=== PATIENT | female | born 1970 | race Caucasian/White ===

== ENCOUNTER → 2021-07-13 01:06 | Outpatient (CLI) | payer SELFPAY | PROVIDERS: Visit Provider Family Medicine ==

== ENCOUNTER → 2021-09-08 01:22 | Outpatient (CLI) | payer MEDICARE, SELFPAY ==
--- NOTE | 2021-09-08 15:42 | DI.MAMMO_ITS ---
Exam(s) MAMMO SCREENING EXAM: MAMMO SCREENING CLINICAL HISTORY: SCREENING, Z12.39. TECHNIQUE: Bilateral full field digital CC and MLO mammographic images were obtained with 3D tomosyn thesis and utilizing computer aided detection (CAD). COMPARISON: Prior outside mammograms were reviewed, the most recent being December 2018. FINDINGS: There is a benign-appearing lymph node laterally in the breast, unchanged from prior studies. A mauricio gn-appearing microcalcification posteriorly in the right breast is again noted. Asymmetric density lateral of center in the right breast located approximately 8 cm from the nipple o n the CC view noted. Recommend spot compression view. No malignant-appearing microcalcification abdulkadir ups in this region nor elsewhere in either breast There are no new spiculated masses nor malignant appearing microcalcification groups. There is no significant architectural distortion nor skin thickening-retraction. IMPRESSION: Stable benign-appearing left breast findings Asymmetric right breast density. Spot compression view and ultrasound recommended. I note this fauzia ent's mother was diagnosed with breast cancer. BI-RADS Category 0 - Assessment Incomplete: Need additional imaging evaluation Breast Density - Category C - Heterogeneously dense Breast density Category C or D implies that the patient has dense breast tissue. Dense breast tissue can make it harder to find cancer on a mammogram. Dense breast tissue is also associated with an incr eased risk of breast cancer. This information about the result of the mammogram report was provided to the patient to raise their awareness. Use this report when you speak with the patient about their risks for breast cancer, which includes their family history. At that time, you may recommend additional screening tests (Ultrasoun d or MRI) as these tests may add significant information. A negative radiographic report should not delay biopsy if a dominant or clinically suspicious mass is present. Up to ten percent of cancers are not identified on mammography. A negative report may reinforce clinical impression. Adenosis and dense breasts may obscure an underlying neoplasm. False positive reports average 6 to 10%. Patient will receive a letter notifying them of these results.
== END ==
PROVIDERS: Visit Provider Family Medicine
DX: Z12.31 Encounter for screening mammogram for malignant neoplasm of breast (principal); R92.8 Other abnormal and inconclusive findings on diagnostic imaging of breast; Z80.3 Family history of malignant neoplasm of breast
CPT/HCPCS: 77063; 77067

== ENCOUNTER 2021-09-22 15:55 | Outpatient (REF) | payer MEDICARE, MEDICAID, SELFPAY ==
[2021-09-22 14:46] LABS: HCT 43.3 % (36.0-46.0); HGB 14.3 g/dL (11.2-15.7); MCH 29.9 pg (27.0-33.0); MCV 91 fL (80-95); MPV 10.3 fL (8.0-11.0); Platelet Count 343 10^3/uL (130-400); RBC 4.78 10^6/uL (3.93-5.22); RDW 12.6 % (11.7-14.6); RDW-SD 41.3 fL; WBC 6.08 10^3/uL (4.4-10.8)
[2021-09-22 15:07] LABS: ALT 26 U/L (14-59); AST 25 U/L (15-37); Albumin 3.7 g/dL (3.4-5.0); Alkaline Phosphatase 119 U/L (46-116); Anion Gap 3.2 mmol/L (3-11); BUN 10 mg/dL (7-18); Bilirubin, Total 0.3 mg/dL (0.2-1.0); CO2 30.8 mmol/L (21.0-32.0); CREATININE 0.8 mg/dL (0.55-1.02); Calcium 8.8 mg/dL (8.5-10.1); Chloride 103 mmol/L (98-107); Glucose 95 mg/dL (74-106); Potassium 3.8 mmol/L (3.5-5.1); Sodium 137 mmol/L (136-145); TSH (W/Ref FT4) 1.33 uIU/mL (0.36-3.74); Total Protein 7.4 g/dL (6.4-8.2)
[2021-09-22 15:49] LABS: Hemoglobin A1C 5.6 % (<5.7)
== END 2021-09-22 15:56 | disposition home or self-care (01) ==
LOC: NCHCN 15:55
PROVIDERS: Visit Provider Nurse Practitioner Family
DX: F32.9 Major depressive disorder, single episode, unspecified (principal); Z13.1 Encounter for screening for diabetes mellitus; Z83.3 Family history of diabetes mellitus; Z00.00 Encounter for general adult medical examination without abnormal findings
CPT/HCPCS: 80053; 85027; 83036; 84443

== ENCOUNTER → 2021-09-29 00:48 | Outpatient (CLI) | payer MEDICARE, MEDICAID, SELFPAY ==
--- NOTE | 2021-09-29 | DI.US_ITS ---
Exam(s) MG MAMMO SCREEN CALL BACK UNI US BREAST RT COMPLETE EXAM: MG MAMMO SCREEN CALL BACK UNI-RIGHT AND COMPLETE RIGHT BREAST ULTRASOUND CLINICAL HISTORY: F/U MAMMO, ASYMMETRIC RT DENSITY. TECHNIQUE: Unilateral spot mammographic images obtained with 3D tomosynthesisand utilizing computer aided detection (CAD). . Complete RIGHT breast Ultrasound was also performed, including all 4 quadrants, the retroareolar rose on, and the ipsilateral axilla. COMPARISON: Prior mammograms were reviewed. This additional imaging was performed due to findings described on the recent screening mammogram of 09/08/2021. FINDINGS: DIAGNOSTIC RIGHT BREAST MAMMOGRAM: Additional mammographic views performed todayrenders this area less concerning and similar appearance to prior mammograms. COMPLETE RIGHT BREAST ULTRASOUND: Ultrasound performed today reveals no solid or significant cystic lesions in all 4 quadrants. No fin dings in the area of concern described on the recent screening mammogram (which appears less concerni ng on additional mammographic spot 3D views performed today). Ultrasound of the right axilla is negative for significant adenopathy. IMPRESSION: No radiographic evidence of malignancy in the right breast. Also negative complete right breast ultrasound. Appropriate follow-up is to keep this patient on her yearly mammogram schedule, with earlier imaging if a self detected breast change is noted. The patient was informed of these findings and recommendations prior to leaving the department today. BI-RADS Category 2 - Benign Findings Breast Density - Category C - Heterogeneously dense Breast density Category C or D implies that the patient has dense breast tissue. Dense breast tissue can make it harder to find cancer on a mammogram. Dense breast tissue is also associated with an incr eased risk of breast cancer. This information about the result of the mammogram report was provided to the patient to raise their awareness. Use this report when you speak with the patient about their risks for breast cancer, which includes their family history. At that time, you may recommend additional screening tests (Ultrasoun d or MRI) as these tests may add significant information. A negative radiographic report should not delay biopsy if a dominant or clinically suspicious mass is present. Up to ten percent of cancers are not identified on mammography. A negative report may reinforce clinical impression. Adenosis and dense breasts may obscure an underlying neoplasm. False positive reports average 6 to 10%. Patient will receive a letter notifying them of these results.
== END ==
PROVIDERS: Visit Provider Family Medicine
DX: Z12.31 Encounter for screening mammogram for malignant neoplasm of breast; N64.89 Other specified disorders of breast
CPT/HCPCS: 76642; 77063; 77067

== ENCOUNTER 2023-02-14 17:47 | Outpatient (REF) | payer MEDICARE, SELFPAY ==
[2023-02-14 19:12] LABS: Abs Immature Grans 0.02 10^3/uL (0.0-0.06); Absolute Basophil Count 0.02 10^3/uL (0.0-0.2); Absolute Eosinophil Count 0.11 10^3/uL (0.0-0.7); Absolute Lymphocyte Count 1.83 10^3/uL (1.2-3.4); Absolute Monocyte Count 0.41 10^3/uL (0.1-0.8); Absolute Neutrophil Count 4.13 10^3/uL (1.2-6.7); Basophils % 0.3; Eosinophils % 1.7; HCT 45.3 % (36.0-46.0); HGB 15.2 g/dL (11.2-15.7); Immature Grans % 0.3; Lymphocytes % 28.1; MCH 29.9 pg (27.0-33.0); MCHC 33.6 % (32.0-36.0); MCV 89 fL (80-95); MPV 9.6 fL (8.0-11.0); Monocytes % 6.3; Neutrophils % 63.3; Platelet Count 357 10^3/uL (130-400); RBC 5.09 10^6/uL (3.93-5.22); RDW 12.3 % (11.7-14.6); RDW-SD 40.4 fL; WBC 6.52 10^3/uL (4.4-10.8)
[2023-02-14 19:35] LABS: Hemoglobin A1C 5.2 % (<5.7)
[2023-02-14 20:01] LABS: Vitamin D 25 Total 38.8 ng/mL (30-100)
[2023-02-14 20:06] LABS: ALT 39 U/L (14-59); AST 26 U/L (15-37); Albumin 4.3 g/dL (3.4-5.0); Alkaline Phosphatase 127 U/L (46-116); Anion Gap 6.7 mmol/L (3-11); BUN 13 mg/dL (7-18); Bilirubin, Total 0.7 mg/dL (0.2-1.0); CO2 29.3 mmol/L (21.0-32.0); CREATININE 0.8 mg/dL (0.55-1.02); Calcium 9.9 mg/dL (8.5-10.1); Calculated LDL 154 mg/dL (<100); Chloride 102 mmol/L (98-107); Cholesterol 235 mg/dL (<200); Glucose 115 mg/dL (74-106); HDL Cholesterol 66 mg/dL (40-60); Potassium 4.3 mmol/L (3.5-5.1); Sodium 138 mmol/L (136-145); TSH (W/Ref FT4) 1.61 uIU/mL (0.36-3.74); Total Protein 7.8 g/dL (6.4-8.2); Triglyceride 75 mg/dL (<150); Vitamin B12 183 pg/mL (193-986)
== END 2023-02-14 17:48 | disposition home or self-care (01) ==
LOC: NCHCN 17:47
PROVIDERS: PCP Nurse Practitioner Family; Visit Provider Nurse Practitioner Family
DX: Z83.3 Family history of diabetes mellitus (principal); R53.83 Other fatigue; Z13.220 Encounter for screening for lipoid disorders
CPT/HCPCS: 80053; 80061; 82306; 82607; 83036; 84443; 85025

== ENCOUNTER → 2023-03-17 01:52 | Outpatient (CLI) | payer MEDICARE, SELFPAY ==
--- NOTE | 2023-03-17 | DI.MAMMO_ITS ---
Exam(s) MAMMO SCREENING EXAM: MAMMO SCREENING CLINICAL HISTORY: SCREENING Z12.39 TECHNIQUE: Bilateral full field digital CC and MLO mammographic images were obtained with 3D tomosyn thesis and utilizing computer aided detection (CAD). COMPARISON: Available for comparison. FINDINGS: Masses/Architectural Distortion: None seen. Microcalcifications: No suspicious pleomorphic-type are seen. Skin Thickening/Nipple Retraction: None. IMPRESSION: 1. No significant interval change with no specific features of malignancy noted. 2. Unless there is more urgent need, screening mammography is recommended, as per [employer] guidelines. BI-RADS Category 1 - Negative Breast Density - Category C - Heterogeneously dense Breast density category C or D implies that the patient has dense breast tissue. Dense breast tissue is very common and is not abnormal but dense breast tissue can make it harder to find cancer on a ma mmogram. Also, dense breast tissue may increase their breast cancer risk. This information about the result of the mammogram report was provided to the patient to raise their awareness. Use this report when you speak with the patient about their risks for breast cancer, which includes their family hist ory. At that time, you may recommend for more screening tests (Ultrasound or MRI) as they might be us eful based on their risk. A negative radiographic report should not delay biopsy if a dominant or clinically suspicious mass is present. Up to ten percent of cancers are not identified on mammography. A negative report may reinforce clinical impression. Adenosis and dense breasts may obscure an underlying neoplasm. False positive reports average 6 to 10%. Patient will receive a letter notifying them of these results.
== END ==
PROVIDERS: PCP Nurse Practitioner Family; Visit Provider Nurse Practitioner Family
DX: Z12.31 Encounter for screening mammogram for malignant neoplasm of breast (principal)
CPT/HCPCS: 77063; 77067

== ENCOUNTER → 2023-04-14 13:31 | Outpatient (BNVA) | payer MEDICARE, SELFPAY | PROVIDERS: PCP Nurse Practitioner Family; Referring Provider Nurse Practitioner Family; Visit Provider Physical Therapy Assistant | DX: Z12.11 Encounter for screening for malignant neoplasm of colon (principal) ==

== ENCOUNTER 2023-04-25 07:48 | Day surgery (SDC) | payer MEDICARE, SELFPAY ==
--- NOTE | 2023-04-24 14:02 | W.PM.DSUDISC ---
Date of service: 04/25/23 Time of Service: 09:46 Discharge Plan Disposition Patient Disposition: Home Condition: Good Discharge Details Reason For Visit: screening colonoscopy Attending Provider: Mendel Sanchez Primary Care Provider: TALI JEAN Home Meds and New Rx's Prescriptions: Continued paroxetine HCl [Paxil] 40 mg tablet 40 mg PO DAILY omeprazole 40 mg capsule,delayed release(DR/EC) 40 mg PO DAILY bupropion HCl 150 mg tablet extended release 24 hr 150 mg PO QAM cholecalciferol (vitamin D3) 25 mcg (1,000 unit) capsule 25 mcg PO DAILY ascorbic acid (vitamin C) 500 mg tablet 500 mg PO DAILY Discharge Instructions Instructions: Diverticulosis (GEN), Colorectal Polyps (GEN), Diverticulosis Diet (GEN) Additional Instructions: Alisa, we were able to complete your colonoscopy today without any difficulty. I did find 2 polyps in your rectum. I removed these both completely. Incidentally, you also have some diverticulosis. I have attached some general information here about polyps as well as diverticula. It will take a week or 2 to get the results of the polyp report, but once I have those I will be in touch regarding the timing of your next colonoscopy. 1. If tolerated, consume a soft, low fiber diet for 1-2 days. 2[address] Do not drive, drink alcohol, operate machinery, make critical decisions, or do activities that require coordination or balance for 24 hours. 3. Because air was put into your colon during the procedure, expelling air from your rectum (passing gas or farting) is normal. 4. You may not have a bowel movement for 1-3 days because of the colonoscopy prep. This is normal. 5. Go directly to the emergency room if you notice any of the following: Develop chills (warm to touch), or if you have a thermometer and your temperature is above 101 Difficulty breathing or difficultly swallowing Persistent vomiting Severe abdominal pain, other than gas cramps Severe chest pain Black, tarry stools Any bleeding ? exceeding one tablespoon 6. Call your physician if the site where your intravenous was started becomes red, swollen, painful, and warm to touch. 7. Your physician has reviewed your pre-procedure medications. Please continue to take those medications as previously ordered. You will be given specific information/education regarding any changes to your medications before leaving. Activity:: Activity as Tolerated Diet:: As Tolerated Discharge Orders Discharge Orders: Discharge Order (Routine); Ordered 04/24/23 Ordered By: Mendel Sanchez DS: Diagnosis Discharge Diagnosis (1) Screen for colon cancer: Status: Acute Asessment and Plan: Follow-up on polyp results
--- NOTE | 2023-04-24 14:04 | COLE_ITS ---
Date of service: 04/25/23 Time of Service: 09:47 Colonoscopy Report Date of procedure: 04/25/23 Pre-op diagnosis general: screening colonoscopy Post-op diagnosis procedure note: other (Diverticulosis, rectal polyps) Procedure: Colonoscopy Surgeon: Mendel Sanchez Anesthesia Type: General:No Airway Estimated blood loss (mL): 10 Pathology: other (0.25 cm flat rectal polyps x 2) Complications: None Disposition: same day Indications: Alisa is a 52 year old woman with a history of adenomatous polyps who needs her next screening colonoscopy Prep: Miralax/Dulcolax Procedure Start Time: 09:10 Procedure End Time: 09:39 Retraction Time: 17 Findings: Sigmoid diverticulosis, rectal polyps x 2 Procedure Description: After the induction of monitored anesthetic care, and with the patient in left lateral decubitus position, I began by performing an external anorectal exam.? Perineum and skin were normal, as was the anal verge.? There are some perianal skin tags.? Next, I performed a digital rectal exam.? I did not appreciate any abnormal findings.? Next, I advanced a colonoscope into the rectal vault.? I performed retroflexion.? This was normal.? Using insufflation, I then advanced the colonoscope beyond the rectal folds and into the sigmoid colon before advancing towards the cecum.? The quality of the prep was excellent.? There was sigmoid diverticulosis. The scope was noted to be in the cecum by identification of the ileocecal valve and appendiceal orifice.? I then began withdrawing the colonoscope using repeated irrigation as necessary for full evaluation of the colonic mucosa. ?Once the scope was withdrawn to the level of the rectum, great care was taken to examine portions of the rectal folds.? In the upper portion of the rectum were 2 polyps. Each was less than 0.25 cm. Each was flat. I removed these both with cold forceps, and there was minimal bleeding. Finally, the scope was withdrawn and the patient was brought to the same-day surgery recovery unit as the anesthetic wore off. ?The findings and instructions were shared with the patient prior to discharge. [place] Bowel Prep [place] Bowel Prep Right Colon: 3 Left Colon: 3 Transverse Colon: 3 Total Score: 9
--- NOTE | 2023-04-24 15:50 | W.ANESPRE ---
General Info Date of Service Date Performed: 04/25/23 Height: 5 ft 7 in Weight: 94.574 kg Body Mass Index (BMI): 32.6 Surgical Procedure: Operation Date: 04/25/23 07:35 Proposed Procedure Side Surgeon p Colonoscopy Mendel Sanchez MD Meds Allergies and Home Medications Allergies Allergy/AdvReac Type Severity Reaction Status Date / Time Opioids - Morphine Analogues Allergy Mild Verified 04/25/23 08:23 Home Medication Medication Instructions Recorded ascorbic acid (vitamin C) 500 mg 500 mg PO DAILY 07/28/22 tablet bupropion HCl 150 mg 24 hr tablet, 150 mg PO QAM 07/28/22 extended release cholecalciferol (vitamin D3) 25 25 mcg PO DAILY 07/28/22 mcg (1,000 unit) capsule omeprazole 40 mg capsule,delayed 40 mg PO DAILY 07/28/22 release paroxetine HCl 40 mg tablet (Paxil) 40 mg PO DAILY 07/28/22 Current Visit Medications: Current Medications Generic Name Dose Route Start Last Admin Trade Name Freq PRN Reason Stop Dose Admin Hyoscyamine Sulfate 0.125 mg 04/24/23 14:05 Hyoscyamine 0.125 Mg Sl/Oral/Chew SL 05/24/23 14:04 DIRECTED PRN Ringer's Solution 1,000 mls @ 80 mls/hr 04/25/23 06:00 IV 05/22/23 23:59 [facility] IV Miscellaneous Supplies 1 each 04/25/23 06:00 Iv Access IV 05/22/23 23:59 DIRECTED BORIS Ondansetron HCl 4 mg 04/24/23 14:05 Ondansetron 4 Mg/2 Ml Vial IVP 05/24/23 14:04 Q4H PRN PRN Nausea / Vomiting Sodium Chloride 0 ml 04/25/23 06:00 Normal Saline Flush 10 Ml Syr IV 05/22/23 23:59 PRN PRN Sodium Chloride 0 ml 04/25/23 06:00 Normal Saline 10 Ml Vial IJ 05/22/23 23:59 DIRECTED PRN Sterile Water 0 ml 04/25/23 06:00 Water,Injection,Sterile 10 Ml Vial IJ 05/22/23 23:59 DIRECTED PRN PFSH Active Problems Active Problems: Problem Status Onset Code Screen for colon cancer Z12.11 Chronic insomnia F51.04 Low back pain M54.50 Hot flashes R23.2 Medical History Medical History (Updated 04/24/23 @ 14:02 by Mendel Sanchez MD) Glaucoma Cannabis abuse Vitamin D deficiency GERD (gastroesophageal reflux disease) IBS (irritable bowel syndrome) Multiple pulmonary nodules History of cocaine abuse per referral last used 05/2019 Borderline personality disorder PTSD (post-traumatic stress disorder) Depression Homeless No longer homesless Family history of type II diabetes mellitus Tobacco Smoking/Tobacco Use Status: Former Tobacco Use Alcohol Alcohol Intake: former Substance Use Substance use: Daily Substance use type: marijuana and crack/cocaine Details: cocaine t-2 years Vital Signs and Lab Results Vital Signs Most Recent Vital Signs in EMR: Temp Pulse Resp BP Pulse Ox 36.4 C L 71 18 105/73 97 04/25/23 08:25 04/25/23 08:25 04/25/23 08:25 04/25/23 08:25 04/25/23 08:25 Lab Results Blood Type / Crossmatch: No Data to Display Complete Blood Count: No Data to Display Complete Metabolic Panel: No Data to Display Liver Function Panel: No Data to Display Coagulation Panel: No Data to Display Cardiac Panel: No Data to Display Arterial Blood Gas: No Data to Display Venous Blood Gas: No Data to Display Pancreas Panel: No Data to Display Thyroid Panel: No Data to Display Infectious Disease: No Data to Display Blood Cultures: No Data to Display Toxicology Panel: No Data to Display Panel: No Data to Display Anesthesia Assessment and Plan Anesthesia History Personal History: No History of Anesthesia Complications Family History: No Family History of Anesthesia Complications Exercise Tolerance Exercise Tolerance: Metabolic Equivalents>4 Cardiac & Pulmonary Exam Cardiac Exam: Normal S1/S2 Heart Sounds Pulmonary Exam: Clear Bilateral Breath Sounds Implantable Cardiac Device Does patient have a Pacemaker or an ICD?: No Airway Exam Known Difficult Airway: No Mallampati Class: 3 Mouth Opening: Normal (> 3cm) Thyromental Distance: Greater than 3 cm Neck Range of Motion: Full ROM Neck Circumference: Normal Teeth Condition: Normal Dentition ASA Classification ASA Score: ASA 2 Emergency Case?: No NPO Status NPO Status: NPO Clears >2 hours, Solids >8 hours Status Status: Negative HCG Anesthesia Plan Resuscitation Status: Full Code Anesthesia Technique: General Anesthesia Airway Planned: Natural Airway Monitors Used: Standard Monitors Preoperative Comments:: 52 yo female for colo. Sig PMHx: GERD (omeprazole), cannabis, pulm nodules, PTSD/depression. former smoker, daily cannabis, occ crack/cocaine in years.
[2023-04-25 08:25] VITALS: BP 105/73; PULSE 71; RESP 18; TEMP 36.4; O2SAT 97
[2023-04-25] MEDS: Lactated Ringers 1,000 ML 80 ML IV (08:28)
[2023-04-25 08:49] VITALS: BMI 32.6
--- NOTE | 2023-04-25 09:37 | BOWEL_PTH ---
PATIENT: Alisa Vega LOC: [facility] U#:[id number] AGE/SX: 52/F ROOM: RE04/25/[address]: Mendel Sanchez MD : 1970 BED: DIS: 04/25/2023 SPEC #: [id number] RECD: 04/25/23 12:36 STATUS: SHARI RE #: [id number] EDDIE: 04/25/23 09:[address]: Mendel Sanchez DEPT: Surgical Specimen RECD BY: Nuzhat Castellano ENTERED: 04/25/23 12:36 SP TYPE: Bowel OTHR DR: TALI JEAN, BENNY Tissues: 1 - BIOPSY BOWEL Procedures: GROSS AND MICRO LEVEL 4 Comments: [id number]
[2023-04-25 09:46] VITALS: BP 103/67; PULSE 71; RESP 18; TEMP 36.3; O2SAT 97
--- NOTE | 2023-04-25 10:01 | W.ANESPOSTOP ---
Postoperative Evaluation Date, Time and Location Date Performed: 04/25/23 Time Performed: 10:01 Patient Location: Day Surgery Unit Vital Signs Most Recent Imported Vital Signs: Most Recent Vital Signs Temp Pulse Resp BP Pulse Ox 36.3 C L 71 18 103/67 97 04/25/23 09:46 04/25/23 09:46 04/25/23 09:46 04/25/23 09:46 04/25/23 09:46 Pain Score Most Recent Pain Score: Most Recent Pain Score Pain Level 0 04/25/23 09:46 Assessment Mental Status: Awake (Alert & Oriented to Patient Baseline) Airway and Respiratory Function: Patent airway with normal (patient baseline) respiratory exam Cardiovascular Function: Hemodynamically Stable Hydration Status: Adequately Hydrated Nausea & Vomiting: No Nausea or Vomiting Pain: Pt. Denies Any Pain Peripheral Nerve Block: Patient did not receive a nerve block
[2023-04-25 10:20] VITALS: BP 102/68; PULSE 56; RESP 16; TEMP 36.3; O2SAT 96
== END 2023-04-25 11:29 | disposition home or self-care (01) ==
LOC: SUR 07:49
PROVIDERS: PCP Nurse Practitioner Family; Visit Provider Surgery
PROC: 0DJD8ZZ Inspection of Lower Intestinal Tract, Via Natural or Artificial Opening Endoscopic (ICD-10-PCS; CPT 45378; principal; 2023-04-25 07:30)
DX: Z12.11 Encounter for screening for malignant neoplasm of colon (principal); K62.1 Rectal polyp; K57.30 Diverticulosis of large intestine without perforation or abscess without bleeding; Z86.010 Personal history of colon polyps
CPT/HCPCS: 45380; 81025; 88305; J2405; J2704

== ENCOUNTER 2024-02-27 15:19 | Outpatient (REF) | payer MEDICARE, SELFPAY ==
[2024-02-27 16:03] LABS: Hemoglobin A1C 5.4 % (<5.7)
[2024-02-27 16:33] LABS: ALT 28 U/L (14-59); AST 17 U/L (15-37); Albumin 3.7 g/dL (3.4-5.0); Alkaline Phosphatase 126 U/L (46-116); Anion Gap 8.6 mmol/L (3-11); BUN 18 mg/dL (7-18); Bilirubin, Total 0.28 mg/dL (0.2-1.0); CO2 29.4 mmol/L (21.0-32.0); CREATININE 0.9 mg/dL (0.55-1.02); Calcium 9.1 mg/dL (8.5-10.1); Chloride 107 mmol/L (98-107); Glucose 106 mg/dL (74-106); Potassium 4.5 mmol/L (3.5-5.1); Sodium 145 mmol/L (136-145); Total Protein 7.1 g/dL (6.4-8.2)
== END 2024-02-27 15:20 | disposition home or self-care (01) ==
LOC: NCHCN 15:19
PROVIDERS: PCP Nurse Practitioner Family; Visit Provider Nurse Practitioner Family
DX: R53.83 Other fatigue (principal)
CPT/HCPCS: 80053; 83036

== ENCOUNTER 2024-08-07 11:07 | Outpatient (REF) | payer MEDICARE, SELFPAY ==
--- NOTE | 2024-08-07 11:20 | PAPFT_PTH ---
PATIENT: Alisa Vega LOC: [facility] U#:[id number] AGE/SX: 54/F ROOM: RE08/07/[address]: Rachelle Veliz MD : 1970 BED: DIS: 08/07/2024 SPEC #: [id number] RECD: 08/07/24 13:00 STATUS: SHARI RETanner #: [id number] EDDIE: 08/07/24 11:[address]: Rachelle Veliz DEPT: [facility] Cytology RECD BY: Nuzhat Castellano ENTERED: 08/07/24 13:00 SP TYPE: PAPFT REJI DR: TALI JEAN NP Tissues: 1 - CX/ENDOCX FOR PAP SMEARS Procedures: PAP THIN PREP/[facility] Screening HPV DNA PROBE Comments: [id number] (HPV 16 & 18/45)
== END 2024-08-07 11:08 | disposition home or self-care (01) ==
LOC: LBN 11:07
PROVIDERS: PCP Nurse Practitioner Family; Visit Provider Obstetrics & Gynecology
DX: Z12.4 Encounter for screening for malignant neoplasm of cervix (principal)
CPT/HCPCS: 88142; 87624

== ENCOUNTER 2024-08-14 00:44 | Outpatient (CLI) | payer MEDICARE, SELFPAY ==
--- NOTE | 2024-08-14 | DI.MAMMO_ITS ---
Exam(s) MAMMO SCREENING EXAM: MAMMO SCREENING CLINICAL HISTORY: SCREENING MAMMO Z12.39 TECHNIQUE: Mammograms were interpreted according to the usual protocol including computer analysis w ith CAD system, tomosynthesis and C-view imaging. COMPARISON: 2017 through 2022 FINDINGS: The breasts are composed of heterogeneously dense fibroglandular densities, Breast Density category C . No suspicious masses or suspicious microcalcifications are seen. No skin thickening or abnormal axillary lymph nodes are seen. There has been no significant change from prior exams. IMPRESSION: BI-RADS Category 1, Negative mammogram. Yearly screening mammography is recommended. Breast Density Category C, heterogeneously Dense. Breast density Category C or D implies that the patient has dense breast tissue. Dense breast tissue can make it harder to find cancer on a mammogram. Dense breast tissue is also associated with an incr eased risk of breast cancer. This information about the result of the mammogram report was provided to the patient to raise their awareness. Use this report when you speak with the patient about their risks for breast cancer, which includes their family history. At that time, you may recommend additional screening tests (Ultrasoun d or MRI) as these tests may add significant information. A negative radiographic report should not delay biopsy if a dominant or clinically suspicious mass is present. Up to ten percent of cancers are not identified on mammography. A negative report may reinforce clinical impression. Adenosis and dense breasts may obscure an underlying neoplasm. False positive reports average 6 to 10%.
== END 2024-08-14 01:04 ==
LOC: DI 00:44
PROVIDERS: PCP Nurse Practitioner Family; Visit Provider Nurse Practitioner Family
DX: Z12.31 Encounter for screening mammogram for malignant neoplasm of breast (principal); R92.333 Mammographic heterogeneous density, bilateral breasts
CPT/HCPCS: 77063; 77067